=== PATIENT | male | born 1980 | race Hispanic/Latino ===

== ENCOUNTER 2019-09-04 13:01 | Observation (INO) | payer SELFPAY ==
[2019-09-04] MEDS ORDERED: ASPIRIN 81 MG CHEWABLE TABLET ONE (13:18)
[2019-09-04 13:43] LABS: Absolute Lymphocytes (CBC) 2.2 K/uL (0.7-4.9); Basophils % 0.8 % (0-1.3); Hematocrit 39.6 % (39.6-49.0); Lymphocytes % 31.2 % (15.3-44.8); MPV 8.4 fL (7.6-11.3); RBC Red Blood Cell Count 4.74 M/uL (4.33-5.43)
--- NOTE | 2019-09-04 13:47 | RAD REPORT ---
EXAM DESCRIPTION: Igor Single View09/04/2019 1:38 pm CLINICAL HISTORY: Chest pain COMPARISON: none FINDINGS: The lungs appear clear of acute infiltrate. The heart is normal size IMPRESSION: No acute abnormalities displayed
[2019-09-04 14:10] LABS: ALT/SGPT 53 U/L (12-78); AST/SGOT 21 U/L (15-37); Albumin 3.4 g/dL (3.4-5.0); Alkaline Phosphatase 107 U/L (45-117); BUN Blood Urea Nitrogen 12 mg/dL (7-18); Bicarbonate 24 mmol/L (21-32); Bilirubin Direct < 0.1 mg/dL (0-0.2); Bilirubin Total 0.3 mg/dL (0.2-1.0); Glucose Level 205 mg/dL (74-106); Lipase 134 U/L (73-393); NT PRO-BNP 12 pg/mL (<125); Potassium 3.4 mmol/L (3.5-5.1); Protein, Total 7.3 g/dL (6.4-8.2); Sodium Level 140 mmol/L (136-145); Troponin (Emerg Dept Use Only) < 0.02 ng/mL (0.0-0.045)
--- NOTE | 2019-09-04 14:42 | ER ---
Nurse's Notes [facility] Name: Bladimir Sher Age: 39 yrs Sex: Male : 1980 Arrival Date: 09/04/2019 Time: 13:06 Bed 6 Private MD: Diagnosis: Chest pain, unspecified Presentation: 09/04 13:00 Transition of care: patient was not received from another setting of care. Onset of tw2 symptoms EMS states: pt was at work eating lunch, started having chest pain at noon, said this happened 6 months ago, they said he had a mild heart attack, his bp systolic 180s, we gave 1 spray nitro, systolic 150's upon arrival here, ns given approx 100 ml, o2 via nc was September 04, 2019. 13:00 Method Of Arrival: EMS: [facility] tw2 13:00 Acuity: ELIAZAR 3 tw2 13:08 Presenting complaint:. Risk Assessment: Do you want to hurt yourself or someone else? tw2 Patient reports no desire to harm self or others. Initial Sepsis Screen: Does the patient meet any 2 criteria? No. Patient's initial sepsis screen is negative. Does the patient have a suspected source of infection? No. Patient's initial sepsis screen is negative. Care prior to arrival: Medication(s) given: Normal saline infusion, 100 ml Nitroglycerin, x 1, IV initiated. 20 GA, in the right antecubital area, Oxygen administered. via nasal cannula. Triage Assessment: 13:10 General: Appears in no apparent distress. obese, Behavior is calm, cooperative, tw2 appropriate for age. Pain: Complains of pain in chest. Cardiovascular: Reports chest pain. Historical: - Allergies: 13:11 No Known Allergies; tw2 - Home Meds: 13:11 None [Active]; tw2 - PMHx: 13:11 Hypertension; tw2 - Immunization history:: Adult Immunizations. - Coronavirus screen:: The patient has NOT traveled to [place], [place], or [place] in the past 14 days. - Family history:: not pertinent. - Social history:: Smoking status: . - Hospitalizations: : No recent hospitalization is reported. - Ebola Screening: : Patient denies travel to an Ebola-affected area in the 21 days before illness onset. Screenin:23 Abuse screen: Denies threats or abuse. Denies injuries from another. Nutritional jl7 screening: No deficits noted. Tuberculosis screening: No symptoms or risk factors identified. Fall Risk IV access (20 points). Total Parra Fall Scale indicates No Risk (0-24 pts). Assessment: 13:15 General: Appears in no apparent distress. uncomfortable, Behavior is calm, cooperative, jl7 appropriate for age. Pain: Complains of pain in anterior aspect of left upper chest Pain does not radiate. Pain currently is 8 out of 10 on a pain scale. Pain began suddenly, Is intermittent. Neuro: Level of Consciousness is awake, alert, obeys commands, Oriented to person, place, time, situation. Cardiovascular: Patient's skin is warm and dry. Respiratory: Airway is patent Respiratory effort is even, unlabored, Respiratory pattern is regular, symmetrical. Derm: Skin is pink, warm \T\ dry. 14:17 Reassessment: Patient appears in no apparent distress at this time. No changes from tw2 previously documented assessment. Patient and/or family updated on plan of care and expected duration. Pain level reassessed. Patient is alert, oriented x 3, equal unlabored respirations, skin warm/dry/pink. provider at bedside at this time. 15:15 Reassessment: Patient appears in no apparent distress at this time. Patient and/or jl7 family updated on plan of care and expected duration. Pain level reassessed. Patient is alert, oriented x 3, equal unlabored respirations, skin warm/dry/pink. Patient states symptoms have improved. Vital Signs: 13:10 BP 172 / 105; Pulse 95; Resp 17; Temp 98(TE); Pulse Ox 97% on R/A; Weight 129.27 kg tw2 (R); Height 5 ft. 8 in. (172.72 cm); 13:15 Pain 8/10; jl7 13:51 BP 155 / 92; Pulse 86; Resp 17 S; Pulse Ox 97% on R/A; jl7 15:47 BP 133 / 93; Pulse 59; Resp 17 S; Pulse Ox 97% on R/A; Pain 0/10; jl7 13:10 Body Mass Index 43.33 (129.27 kg, 172.72 cm) tw2 ED Course: 13:06 Patient arrived in ED. tw2 13:07 Haroldo Garnica MD is Attending Physician. rn 13:10 Triage completed. tw2 13:10 Arm band placed on. tw2 13:10 Maintain EMS IV. Dressing intact. Good blood return noted. Site clean \T\ dry. Gauge \T\ tw 2 site: 20 g RIGHT ac. 13:12 Valdez Gleason, RN is Primary Nurse. jl7 13:23 Patient has correct armband on for positive identification. Placed in gown. Bed in low jl7 position. Call light in reach. Side rails up X 1. vinegar maker on. Pulse ox on. NIBP on. 13:23 Lipase Sent. jl7 13:23 Basic Metabolic Panel Sent. jl7 13:23 CBC with Diff Sent. jl7 13:23 LFT's Sent. jl7 13:23 NT PRO-BNP Sent. jl7 13:23 Troponin (emerg Dept Use Only) Sent. jl7 13:23 Initial lab(s) drawn, by tn, sent to lab. Patient maintains SpO2 saturation greater jl7 than 95% on room air. 14:40 Chen Jones MD is Hospitalizing Provider. rn 15:47 No provider procedures requiring assistance completed. Patient admitted, IV remains in jl7 place. intact, No redness/swelling at site. Administered Medications: 13:22 Drug: Aspirin Chewable Tablet 324 mg Route: PO; jl7 13:51 Follow up: Response: No adverse reaction jl7 Outcome: 14:40 Decision to Hospitalize by Provider. rn 15:47 Admitted to Tele accompanied by tech, family with patient, via wheelchair, room 228, [facility] with chart, Report called to BECKI Carreon 15:47 Condition: stable 15:47 Discharge instructions given to patient, family, Instructed on the need for admit, Demonstrated understanding of instructions. 16:05 Patient left the ED. jl7 Signatures: Haroldo Garnica MD MD rn Wise, Tara, RN RN tw2 Valdez Gleason, BECKI CONNELL jl7
--- NOTE | 2019-09-04 14:42 | EDPHYS ---
Physician Documentation [facility] Name: Bladimir Sher Age: 39 yrs Sex: Male : 1980 Arrival Date: 09/04/2019 Time: 13:06 Bed 6 Private MD: ED Physician Haroldo Garnica HPI: 09/04 13:10 This 39 yrs old Male presents to ER via EMS with complaints of Chest Pain > 30 rn y/o. 13:10 The patient or guardian reports chest pain that is located primarily in the anterior rn aspect of left upper chest. Onset: just prior to arrival. The pain does not radiate. Associated signs and symptoms: Pertinent positives: cough, Pertinent negatives: abdominal pain, diaphoresis, lower extremity swelling, lightheadedness, near syncope, palpitations, recent travel, shortness of breath, syncope, vomiting. The chest pain is described as a heaviness. Duration: The patient or guardian reports a single episode, that is still ongoing. Modifying factors: The symptoms are alleviated by NTG, X1. the symptoms are aggravated by nothing. Severity of pain: At its worst the pain was moderate in the emergency department the pain has improved. The patient has experienced a previous episode. The patient has not recently seen a physician. Historical: - Allergies: 13:11 No Known Allergies; tw2 - Home Meds: 13:11 None [Active]; tw2 - PMHx: 13:11 Hypertension; tw2 - Immunization history:: Adult Immunizations. - Coronavirus screen:: The patient has NOT traveled to [place], [place], or [place] in the past 14 days. - Family history:: not pertinent. - Social history:: Smoking status: . - Hospitalizations: : No recent hospitalization is reported. - Ebola Screening: : Patient denies travel to an Ebola-affected area in the 21 days before illness onset. ROS: 13:12 Constitutional: Negative for fever, chills, and weight loss, Neck: Negative for injury, rn pain, and swelling, Cardiovascular: Negative for palpitations, and edema, Respiratory: Negative for shortness of breath, cough, wheezing, and pleuritic chest pain, Abdomen/GI: Negative for abdominal pain, nausea, vomiting, diarrhea, and constipation, MS/Extremity: Negative for injury and deformity, Skin: Negative for injury, rash, and discoloration, Neuro: Negative for headache, weakness, numbness, tingling, and seizure. Exam: 13:10 ECG was reviewed by the Attending Physician. rn 13:12 Constitutional: Overweight male, no acute distress Head/Face: Normocephalic, rn atraumatic. ENT: MMM Neck: Trachea midline, no thyromegaly or masses palpated, and no cervical lymphadenopathy. Supple, full range of motion without nuchal rigidity, or vertebral point tenderness. No Meningismus. Cardiovascular: Regular rate and rhythm, no jvd. No pulse deficits. Respiratory: No increased work of breathing, no retractions or nasal flaring. Abdomen/GI: soft, non-tender MS/ Extremity: Pulses equal, no cyanosis. Neurovascular intact. Full, normal range of motion. Equal circumference. Neuro: Awake and alert, GCS 15, oriented to person, place, time, and situation. Cranial nerves II-XII grossly intact. Motor strength 5/5 in all extremities. Sensory grossly intact. Vital Signs: 13:10 BP 172 / 105; Pulse 95; Resp 17; Temp 98(TE); Pulse Ox 97% on R/A; Weight 129.27 kg tw2 (R); Height 5 ft. 8 in. (172.72 cm); 13:15 Pain 8/10; jl7 13:51 BP 155 / 92; Pulse 86; Resp 17 S; Pulse Ox 97% on R/A; jl7 15:47 BP 133 / 93; Pulse 59; Resp 17 S; Pulse Ox 97% on R/A; Pain 0/10; jl7 13:10 Body Mass Index 43.33 (129.27 kg, 172.72 cm) tw2 MDM: 13:07 Patient medically screened. rn 14:30 Differential diagnosis: acute myocardial infarction, acute pericarditis, coronary rn artery disease chest wall pain, costochondritis, esophagitis, gastritis, gastroesophageal reflux disease (GERD), pancreatitis, pericarditis, pleurisy, pneumonia, pneumothorax, stable angina. Data reviewed: vital signs, nurses notes. Data reviewed: lab test result(s), EKG, radiologic studies, plain films, and as a result, I will admit patient. Counseling: I had a detailed discussion with the patient and/or guardian regarding: the historical points, exam findings, and any diagnostic results supporting the discharge/admit diagnosis, lab results, radiology results, the need for further work-up and treatment in the hospital. Admission orders: after a detailed discussion of the patient's condition and case, the admit orders are written by me. ED course: Pt without clear etiology of chest pain, but reports previous "CO", and chest pain relieved with nitroglycerin. Trop neg, ECG shows LVH but no ischemia. . 14:40 The patient was given aspirin in the Emergency Department. rn 14:42 Response to treatment: and as a result, I will. Response to treatment: and as a result, rn I will admit patient. 09/04 13:08 Order name: Basic Metabolic Panel rn 09/04 13:08 Order name: CBC with Diff rn 09/04 13:08 Order name: LFT's rn 09/04 13:08 Order name: NT PRO-BNP rn 09/04 13:08 Order name: Troponin (emerg Dept Use Only) rn 09/04 13:08 Order name: Lipase rn 09/04 13:46 Order name: CBC with Automated Diff; Complete Time: 13:48 EDMS 09/04 14:11 Order name: Basic Metabolic Panel; Complete Time: 14:16 EDMS 09/04 14:11 Order name: Liver (Hepatic) Function; Complete Time: 14:16 EDMS 09/04 14:11 Order name: Troponin (Emerg Dept Use Only); Complete Time: 14:16 EDMS 09/04 14:11 Order name: NT PRO-BNP; Complete Time: 14:16 EDMS 09/04 14:11 Order name: Lipase; Complete Time: 14:16 EDMS 09/04 15:38 Order name: Lipid Profile EDLA 09/04 15:38 Order name: Magnesium EDMS 09/04 13:08 Order name: XRAY Chest (1 view) rn 09/04 13:08 Order name: EKG; Complete Time: 13:12 rn 09/04 13:08 Order name: Cardiac monitoring; Complete Time: 13:12 rn 09/04 13:08 Order name: EKG - Nurse/Tech; Complete Time: 13:12 rn 09/04 13:08 Order name: IV Saline Lock; Complete Time: 13:12 rn 09/04 13:08 Order name: Labs collected and sent; Complete Time: 13:12 rn 09/04 13:08 Order name: O2 Per Protocol; Complete Time: 13:12 rn 09/04 13:08 Order name: O2 Sat Monitoring; Complete Time: 13:12 rn 09/04 14:36 Order name: RAD; Complete Time: 14:43 EDLA 09/04 15:38 Order name: Thyroid Stimulating Hormone EDMS 09/04 15:48 Order name: Hemoglobin A1c EDMS 09/04 16:03 Order name: CT EDMS EC:10 Rate is 94 beats/min. Rhythm is regular. QRS Chandler is Normal. DE interval is normal. QRS rn interval is normal. QT interval is normal. No Q waves. T waves are Normal. No ST changes noted. Clinical impression: LVH. Interpreted by me. Reviewed by me. Administered Medications: 13:22 Drug: Aspirin Chewable Tablet 324 mg Route: PO; jl7 13:51 Follow up: Response: No adverse reaction jl7 Disposition: 09/04/19 14:40 Hospitalization ordered by Chen Jones for Observation. Preliminary diagnosis is Chest pain, unspecified. - Bed requested for Telemetry/MedSurg (observation). - Status is Observation. jl7 - Condition is Stable. - Problem is new. - Symptoms have improved. Signatures: Dispatcher [employer] EDLA TiffanieGlenda almanza Haroldo Tang MD MD rn Javi, Ellen RN RN tw2 Valdez Gleason RN RN jl7 Corrections: (The following items were deleted from the chart) 14:43 14:30 Response to treatment: the patient's symptoms have markedly improved after rn treatment, and as a result, I will discharge patient, rn 15:24 14:40 Hospitalization Ordered by Chen Jones MD for Observation. Preliminary bd diagnosis is Chest pain, unspecified. Bed requested for Telemetry/MedSurg (observation). Status is Observation. Condition is Stable. Problem is new. Symptoms have improved. rn 16:05 15:24 09/04/2019 14:40 Hospitalization Ordered by Chen Jones MD for Observation. jl7 Preliminary diagnosis is Chest pain, unspecified. Bed requested for Telemetry/MedSurg (observation). Status is Observation. Condition is Stable. Problem is new. Symptoms have improved. bd
[2019-09-04] MEDS ORDERED: ALBUTEROL 2.5 MG/3 ML NEB SOL NEB PRN (14:48)
[2019-09-04] MEDS ORDERED: ONDANSETRON 4 MG/2 ML VIAL IV PRN (14:48)
[2019-09-04] MEDS ORDERED: MORPHINE 2 MG/ML SYR IV PRN (14:48)
[2019-09-04] MEDS ORDERED: HYDRALAZINE HCL 20 MG/ML VIAL IV PRN (14:51)
[2019-09-04] MEDS ORDERED: POTASSIUM 25 MEQ EFFERV TAB PO ONE (14:51)
[2019-09-04] MEDS ORDERED: NA CHLORIDE 0.9% 1,000 ML IV SCH (15:00)
[2019-09-04] MEDS ORDERED: guaiFENesin 100 MG/5 ML UCUP PO PRN (15:28)
--- NOTE | 2019-09-04 15:31 | RAD REPORT ---
EXAM DESCRIPTION: CT - Chest Angio - 09/04/2019 3:05 pm CLINICAL HISTORY: Chest pain. chest pain , HTN , r/o dissection COMPARISON: No comparisons TECHNIQUE: CT angiogram of the pulmonary arteries was performed with MIP. All CT scans are performed using dose optimization technique as appropriate and may include automated exposure control or mA/KV adjustment according to patient size. FINDINGS: No evidence of pulmonary thromboembolism. No acute aortic finding demonstrated. The lungs are clear. No significant pericardial or pleural fluid. Mild residual thymic tissue suspected. No concerning bony finding. Fatty liver is seen. Fatty 28 mm left adrenal mass likely a myelolipoma. IMPRESSION: No evidence of pulmonary thromboembolism. No acute aortic finding. No acute lung findings.
[2019-09-04 15:38] LABS: Magnesium 2.2 mg/dL (1.8-2.4); Thyroid Stimulating Hormone 2.09 uIU/mL (0.360-3.740)
[2019-09-04] MEDS: INSULIN -REGULAR HUMAN 50 UNIT/0.5 ML ML SQ SCH ×2 (16:30→21:00)
[2019-09-04] MEDS: AMLODIPINE 10 MG TAB PO SCH (16:45)
[2019-09-04] MEDS: SPIRONOLACTONE 25 MG TABLET PO SCH (16:45)
[2019-09-04] MEDS: ENOXAPARIN 40 MG/0.4 ML SQ SCH (16:46)
[2019-09-04] MEDS: NICOTINE 21 MG/PAT TD SCH (16:46)
[2019-09-04] MEDS: NITROGLYCERIN 0.2 MG/HR (5 MG) PATCH TD SCH (16:47)
[2019-09-04 17:54] VITALS: BMI 42.0
[2019-09-04] MEDS ORDERED: METOPROLOL XL 25 MG TAB PO SCH (21:00)
[2019-09-04] MEDS ORDERED: ATORVASTATIN 20 MG TAB PO SCH (21:00)
[2019-09-04] MEDS: FAMOTIDINE 20 MG TAB PO SCH (21:05)
--- NOTE | 2019-09-05 02:53 | HP ---
Date of Admission: 09/04/2019 Presenting Complaint: Left-sided chest pain. History Of Present Illness: Bladimir Sher is a 39-year-old male with past medical history o f hypertension, who self-stopped taking medications since over the last 6 months. He admits to loulou medication intermittently. He has had multiple ER visits, he has had 4 episodes since the last 2 y ears for intermittent chest pain. Last 6 months ago, he was admitted to [place] and where he self r eports a medication-induced stress test was reportedly negative. He was advised to continue his chol esterol and blood pressure medications, but he self-stopped taking the medications after he felt bett er a few days later. He admits to being told before he has a history of borderline diabetes. He den ies any history of coronary artery disease or DE. He said he was told he had an impending stroke in one of his hospitalizations. 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 Chest pain was left sided, nonradiating. Pain was different from his usual left shoulder pain. He denies any shortness of breath, but felt weak. On arrival in the ED, chest pain worsened and later resolved 5 minutes later. He was given sublingual nitroglycerin and aspirin. He had a CT chest done now that shows no evidence of PE or aortic dissection. at bedside states patient has been having increasing cough since the last 1 week, usually nonproductive. He denies any cough, con tact, or fever. Past Medical History: 1.Hypertension, nonadherence with medications. 2.Borderline diabetes mellitus. 3.Hyperlipidemia, not taking any medications. 4.Morbid obesity. Family History: Significant for both parents with diabetes and hypertension, but no history of CVA o r DE. Social History: Patient resides in the community. 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 He admits to tob acco use. Smokes about half a pack a day since over the last 30 years. states patient drinks 2 -3 cases of beer only on weekends and rarely drinks during the weekdays. He has not had any alcohol withdrawal symptoms in the past. He denies any illicit drug use. Allergies: NO KNOWN DRUG ALLERGIES. Home Medications: Currently none. Review of Systems: All systems reviewed, x14 were negative except as mentioned above. Physical Examination: Vital Signs: On initial presentation in the ED, blood pressure was 170/110. Blood pressure improved now currently to 155/96 with a pulse of 73, respiratory rate of 16, O2 saturation 99 on room air. T emperature afebrile. General: Markedly obese, middle-aged male, not in any distress, speaking in full sentences. HEENT: Head is atraumatic, normocephalic. Pupils equal, reactive to light. Neck: Short webbed neck, but no JVD, no carotid bruit. Respiratory: Mild bibasilar crepitations, but otherwise good air entry. Cardiovascular: S1, S2 noted with no chest wall tenderness. GI: Obese, soft. Bowel sounds positive. Extremities: No pedal edema. Trace varicose veins, but no calf tenderness. Neuro: Patient is alert, oriented. Cranial nerves 2 through 12 grossly intact. Laboratory Data: EKG shows normal sinus rhythm at rate of 93 beats per minute. No ST-segment change s. LVH pattern. Rest of lab, WBC 6.9, platelets 244, hemoglobin 13. Sodium 140, potassium 3.4, bicarb 24, chloride 1 09, creatinine 0.88, calcium 8.3. AST, alkaline phosphatase, ALT normal. Troponin less than 0.02. BNP 12. Lipase 134. Glucose of 205. Impression: 1.Atypical chest pain. 2.Obesity. 3.Hypertension with possible hypertensive urgency. 4.Presumed borderline diabetes mellitus. 5.Hyperlipidemia. Plan: 1.We admit patient to observation. We will manage patient for rule out acute coronary syndrome, nee d for tobacco cessation as well as medications discussed. Given relatively reported negative stress test 6 months ago, we will obtain echocardiogram. Need for regular followup with a PCP advised. Rox montalvo not usually seeing any physician at this time. We do serial set of cardiac enzymes. We will pl elijah patient on telemetry monitoring. We will start empirical aspirin. 2.Hypertension with low potassium. We will replete potassium. We will start patient on spironolact one given obesity as well as hypokalemia. We will also initiate low-dose Toprol. If still elevated blood pressure, patient may need amlodipine or lisinopril. 3.Hyperlipidemia. We will obtain repeat lipid profile. We will start patient on low-dose Pravachol at this time or Lipitor. Follow up with PCP for regular lipid panel and LFTs discussed. 4.Obesity. Weight loss and reduced calorie intake as well as changing lifestyle discussed with christiana ent. We will obtain TSH level. 5.Presumed diabetes mellitus given mild elevated serum glucose. We will obtain hemoglobin A1c. We will place on Accu-Cheks with a sliding scale for now. If hemoglobin A1c is elevated above 7, we angelito l start patient on low-dose metformin. 6.DVT prophylaxis. Subcutaneous Lovenox. 7.Advanced directives. Patient is full code. 8.Chronic tobacco use. We will do nicotine patch. Tobacco cessation advised. Total time spent in review of record, discussion with patient, and spouse as well as reviewing CT, EK G, greater than 80 minutes. EO/MODL Voice ID: [id number]
[2019-09-05 06:34] LABS: Basophils % 0.4 % (0-1.3); Hematocrit 39.6 % (39.6-49.0); Lymphocytes % 23.3 % (15.3-44.8); MPV 8.3 fL (7.6-11.3)
[2019-09-05 06:56] LABS: ALT/SGPT 51 U/L (12-78); AST/SGOT 23 U/L (15-37); Albumin 3.4 g/dL (3.4-5.0); Alkaline Phosphatase 89 U/L (45-117); BUN Blood Urea Nitrogen 9 mg/dL (7-18); Bicarbonate 26 mmol/L (21-32); Bilirubin Total 0.6 mg/dL (0.2-1.0); Glucose Level 100 mg/dL (74-106); Potassium 4.1 mmol/L (3.5-5.1); Protein, Total 6.7 g/dL (6.4-8.2); Sodium Level 141 mmol/L (136-145); Troponin I < 0.02 ng/mL (0.0-0.045)
[2019-09-05] MEDS: INSULIN -REGULAR HUMAN 50 UNIT/0.5 ML ML SQ SCH (07:30)
[2019-09-05 08:03] VITALS: O2SAT 95
[2019-09-05 08:35] VITALS: TEMP 98.4
[2019-09-05] MEDS ORDERED: ASPIRIN EC 81 MG TAB PO SCH (09:00)
[2019-09-05] MEDS: AMLODIPINE 10 MG TAB PO SCH (09:13)
[2019-09-05] MEDS: SPIRONOLACTONE 25 MG TABLET PO SCH (09:20)
[2019-09-05] MEDS: FAMOTIDINE 20 MG TAB PO SCH (09:20)
[2019-09-05] MEDS: NICOTINE 21 MG/PAT TD SCH (09:21)
[2019-09-05] MEDS: NITROGLYCERIN 0.2 MG/HR (5 MG) PATCH TD SCH (09:23)
[2019-09-05] MEDS: ENOXAPARIN 40 MG/0.4 ML SQ SCH (09:24)
[2019-09-05 09:25] VITALS: BP 152/87
--- NOTE | 2019-09-05 10:21 | P.DS ---
Admission Date: 09/04/19 Discharge Date: 09/05/19 Disposition: ROUTINE DISCHARGE Discharge Condition: GOOD - Problems (1) Borderline diabetes mellitus Current Visit: Yes Status: Acute (2) Cervical arthritis Current Visit: Yes Status: Acute (3) Chest pain Current Visit: Yes Status: Acute (4) HTN (hypertension) Current Visit: Yes Status: Acute (5) Obesity (BMI 35.0-39.9 without comorbidity) Current Visit: Yes Status: Acute Brief History of Present Illness: History Of Present Illness: Bladimir Sher is a 39-year-old male with past medical history of hypertension, who self-stopped taking medications since over the last 6 months. He admits to taking medication intermittently. He has had multiple ER visits, he has had 4 episodes since the last 2 years for intermittent chest pain. Last 6 months ago, he was admitted to [facility] and where he self reports a medication-induced stress test was reportedly negative. He was advised to continue his cholesterol and blood pressure medications, but he self-stopped taking the medications after he felt better a few days later. He admits to being told before he has a history of borderline diabetes. He denies any history of coronary artery disease or NV. He said he was told he had an impending stroke in one of his hospitalizations. 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 Chest pain was left sided, nonradiating. Pain was different from his usual left shoulder pain. He denies any shortness of breath, but felt weak. On arrival in the ED, chest pain worsened and later resolved 5 minutes later. He was given sublingual nitroglycerin and aspirin. He had a CT chest done now that shows no evidence of PE or aortic dissection. at bedside states patient has been having increasing cough since the last 1 week, usually nonproductive. He denies any cough, contact, or fever Hospital Course: Patient with a past medical history of HTN, HLD nonadherent with medications, borderline DM, chronic tobacco use, chronic left shoulder and neck pain, history of recurrent admission to the ER at [facility] for chest pain. Patient states he had a negative stress test 6 months ago. He presented yesterday for similar chest pain. EKG was unremarkable. Serial set of cardiac enzymes was negative. His pain appears to in the neck radiating to the shoulder an down to the anterior chest wall . Patient was advised to take naproxen with prn Tylenol as needed. He was recommended to follow up with primary physician for imaging of the cervical spine. Need for tobacco cessation was discussed. Patient was noted with elevated blood pressure . He states he has stopped taking this medicine since the last 6 months after his last hospitalization. He was restarted on Toprol. His lipid panel was borderline , and his A1c was marginal at 6.5. Lifestyle modification including weight loss was encouraged. Vital Signs/Physical Exam: Temp Pulse Resp BP Pulse Ox 98.4 F 98 H 17 152/87 H 96 09/05/19 08:00 09/05/19 09:23 09/05/19 08:00 09/05/19 09:23 09/05/19 08:00 General: Alert, In no apparent distress, Oriented x3, Obese HEENT: Atraumatic, Normocephalic, PERRLA Neck: Supple, 2+ carotid pulse no bruit, No Thyromegaly Respiratory: Clear to auscultation bilaterally, Normal air movement Cardiovascular: No edema, Normal pulses, Regular rate/rhythm, Normal S1 S2 Gastrointestinal: Normal bowel sounds, Soft and benign, Non-distended Musculoskeletal: No clubbing, No swelling, No contractures, Tenderness (left shoulder at above 90 degree abduction) Integumentary: No rashes, No breakdown, No significant lesion Neurological: Normal gait, Normal speech, Normal strength at 5/5 x4 extr, Sensation intact, Cranial nerves 3-12 intact Laboratory Data at Discharge: WBC 8.5 K/uL (4.3-10.9) D 09/05/19 05:55 Hgb 13.3 g/dL (13.6-17.9) L 09/05/19 05:55 Hct 39.6 % (39.6-49.0) 09/05/19 05:55 Plt Count 250 K/uL (152-406) 09/05/19 05:55 Sodium 141 mmol/L (136-145) 09/05/19 05:52 Potassium 4.1 mmol/L (3.5-5.1) 09/05/19 05:52 BUN 9 mg/dL (7-18) 09/05/19 05:52 Creatinine 0.76 mg/dL (0.55-1.3) 09/05/19 05:52 Glucose 100 mg/dL (74-106) 09/05/19 05:52 Magnesium 2.2 mg/dL (1.8-2.4) 09/04/19 Unknown Total Bilirubin 0.6 mg/dL (0.2-1.0) 09/05/19 05:52 AST 23 U/L (15-37) 09/05/19 05:52 ALT 51 U/L (12-78) 09/05/19 05:52 Alkaline Phosphatase 89 U/L (45-117) 09/05/19 05:52 Troponin I < 0.02 ng/mL (0.0-0.045) 09/05/19 05:52 Triglycerides 262 mg/dL (<150) H 09/04/19 Unknown Cholesterol 175 mg/dL (<200) 09/04/19 Unknown HDL Cholesterol 37 mg/dL (40-60) L 09/04/19 Unknown Cholesterol/HDL Ratio 4.73 09/04/19 Unknown Lipase 134 U/L (73-393) 09/04/19 13:15 Home Medications: Atorvastatin Calcium [Lipitor*] 20 mg PO BEDTIME #30 tab 09/05/19 Metoprolol Succinate [Toprol Xl] 50 mg PO DAILY #60 tab.er.24h 09/05/19 Naproxen 500 mg PO BIDWM #10 tablet. 09/05/19 Nicotine [Nicoderm*] 21 mg TD DAILY #14 patch.td24 09/05/19 New Medications: Atorvastatin Calcium [Lipitor*] 20 mg PO BEDTIME #30 tab Metoprolol Succinate [Toprol Xl] 50 mg PO DAILY #60 tab.er.24h Naproxen 500 mg PO BIDWM #10 tablet. Nicotine [Nicoderm*] 21 mg TD DAILY #14 patch.td24 Patient Discharge Instructions: Follow-up with the primary care physician in 1- 2 weeks Diet: ADA Activity: Ad mary Time spent managing pt's care (in minutes): 35
--- NOTE | 2019-09-05 10:26 | EKG ---
Test Date: 2019-09-04 Test Time: 13:07:49 [employer]: RELL MEASUREMENT RESULTS: Intervals: Rate: 94 MI: 142 QRSD: 96 QT: 362 QTc: 452 [place]: P: 33 MI: 142 QRS: 3 T: 26 INTERPRETIVE STATEMENTS: Normal sinus rhythm Voltage criteria for left ventricular hypertrophy Possible Inferior infarct, age undetermined Abnormal ECG No previous ECG available for comparison Electronically Signed On 09-05-19 10:25:31 MANAGER [employer] by Justin Almanza
== END 2019-09-05 11:06 | disposition home or self-care (01) ==
LOC: ER 13:01 → ERHOLD 14:49 → 2ND 15:52
PROVIDERS: ADMIT Internal Medicine; ATTEND Internal Medicine
DX: R07.89 Other chest pain (principal); I10 Essential (primary) hypertension; R73.03 Prediabetes; E78.5 Hyperlipidemia, unspecified; E66.01 Morbid (severe) obesity due to excess calories; M19.90 Unspecified osteoarthritis, unspecified site; F17.200 Nicotine dependence, unspecified, uncomplicated; Z68.41 Body mass index [BMI] 40.0-44.9, adult
CPT/HCPCS: 36415; 71045; 71275; 80048; 80053; 80061; 80076; 82088; 82947; 83036; 83690; 83735; 83880; 84132; 84244; 84443; 84484; 85025; 93005; 99285; G0378; J1650; J7030; Q9967